=== PATIENT | female | born 2000 | race Two or more races ===

== ENCOUNTER 2021-12-26 00:28 | Outpatient (CLI) | payer OTHER ==
[~2021-12-26] VITALS: Ht 162.6 cm; Wt 57.2 kg
== END 2021-12-26 09:03 | disposition home or self-care (01) ==
LOC: OBS/DEL 00:28
PROVIDERS: ATTEND Specialist
DX: O36.8130 Decreased fetal movements, third trimester, not applicable or unspecified (principal); Z3A.28 28 weeks gestation of pregnancy